=== PATIENT | male | born 1960 | race Caucasian/White ===

== ENCOUNTER 2020-12-07 09:15 | Emergency (ER) | payer SELFPAY ==
--- NOTE | ~2020-12-07 | XR_ITS ---
EXAMINATION: XR chest 2V DATE: 12/07/2020 09:39 INDICATION: Chronic cough. Crackles at right lung base. TECHNIQUE: Frontal and lateral views of the chest were obtained. COMPARISON: Chest single view 03/04/2008 FINDINGS: The chest demonstrates clear lungs without pneumonia, pleural effusion, or pneumothorax. Th e heart size is normal. IMPRESSION: 1. No acute cardiopulmonary disease. Reviewed, dictated and finalized at location A.
[2020-12-07 09:23] VITALS: BP 172/108; PULSE 75; RESP 20; TEMP 36.6; O2SAT 98
--- NOTE | 2020-12-07 09:25 | ED.URI ---
HPI - URI/Sore Throat General Chief Complaint: Upper Respiratory Infection Stated Complaint: Coughing Time Seen by Provider: 12/07/20 09:26 Source: patient and RN notes reviewed History of Present Illness HPI Narrative: Patient is a 60-year-old male who presents the urgent care with complaints of a 2-month cough. Patient states that the cough has gotten much worse over the last 4 days and he is having persistent coughing spells. Patient states that he has been using a lot of cough drops without much improvement. Also reports of some mild chest congestion. Denies of any other upper respiratory complaints. Denies of fever, chills, sore throat, postnasal drainage. Denies of any known contact with Covid, influenza or strep. States he has not been taking his medications for blood pressure for the last 2 weeks because his PCP, dropped him as a patient because he missed a couple appointments . Patient denies of any chest pain or shortness of breath. No other acute complaints. No acute distress noted. Patient aware of the plan of care. Some parts of this dictation were generated by voice recognition software and may contain typographical and/or grammatical inaccuracies. Related Data Allergies Allergy/AdvReac Type Severity Reaction Status Date / Time No Known Allergies Allergy Verified 12/07/20 09:36 Review of Systems Review of Systems: Narrative: CONSTITUTIONAL: Denies fever, chills, or sweats. EYES: Denies visual changes, redness, or discharge. ENT: Denies rhinorrhea, congestion, sore throat, or otalgia. CARDIOVASCULAR: Denies chest pain, palpitations, or edema. RESPIRATORY: Reports of dry persistent cough with coughing spells and chest congestion GASTROINTESTINAL: Denies abdominal pain, nausea, vomiting, or diarrhea. GENITOURINARY: Denies dysuria or hematuria. SKIN: Denies rash or itching. MUSCULOSKELETAL: Denies back pain, joint pain, or myalgia. NEUROLOGIC: Denies headache, numbness, or weakness. All other systems reviewed are negative, except as documented in HPI. [facility] Past Medical History Medical History (Updated 12/07/20 @ 09:56 by MALIKA Loyola) HTN (hypertension) Family History Family History Other Family history of heart disease in male family member before age 55 Social History Social History Smoking status: Never smoker Second hand tobacco smoke exposure: No Alcohol intake: never Comments At the time of my signature, I reviewed and agree with the nursing past medical, surgical, social, and family history. There is no relevant family history pertinent to the patient complaint. Exam Narrative: Exam Narrative: GENERAL: This is a well-nourished, well-developed patient, in no apparent distress. HEAD: normocephalic, atraumatic. EYES: PERRL. Sclera clear/white. Vision is grossly intact. EARS: External ears normal NOSE: External nose normal with no obvious nasal discharge, nares without redness, no rhinorrhea. THROAT: Mucous membranes moist NECK: Neck supple CARDIOVASCULAR: Regular rate and rhythm without murmurs, gallops, or rubs. RESPIRATORY: Persistent coughing fits exacerbated with deep breathing. Crackles to the right lower lobe SKIN: warm, intact with no suspicious lesions or rash, good texture and turgor. NEURO: awake, alert, and oriented to person, place and time. There were no obvious focal neurologic abnormalities. EXTREMITIES: No clubbing, cyanosis, or edema. Course Vital Signs Vital signs: Vital Signs Temperature 98 F 12/07/20 09:23 Pulse Rate 75 12/07/20 09:23 Respiratory Rate 20 12/07/20 09:23 Blood Pressure 172/108 H 12/07/20 09:23 Pulse Oximetry 98 12/07/20 09:23 Temperature 98 F 12/07/20 09:23 Pulse Rate 75 12/07/20 09:23 Respiratory Rate 20 12/07/20 09:23 Blood Pressure 172/108 H 12/07/20 09:23 Pulse Oximetry 98 12/07/20
== END 2020-12-07 10:05 | disposition home or self-care (01) ==
PROVIDERS: Emergency Provider Nurse Practitioner Family
DX: J40 Bronchitis, not specified as acute or chronic (principal); I10 Essential (primary) hypertension
CPT/HCPCS: 71046; 99213; G0463

== ENCOUNTER 2022-10-01 11:08 | Emergency (ER) | payer OTHER, SELFPAY ==
--- NOTE | ~2022-10-01 | XR_ITS ---
XR chest 2V DATE: 10/01/2022 11:33 INDICATION: Chronic cough for 3 weeks TECHNIQUE: 2 views COMPARISON: 12/07/2020 2 view chest FINDINGS: Normal heart size. No hilar or mediastinal enlargement. Mild aortic unfolding. No pulmonary infiltrate or consolidation, pleural effusion or pulmonary vascular congestion or pneumo thorax. IMPRESSION: No active cardiopulmonary disease Reviewed, dictated and finalized at location B.
[2022-10-01 11:14] VITALS: BP 145/100; PULSE 108; RESP 20; TEMP 36.6; O2SAT 97
--- NOTE | 2022-10-01 11:16 | ED.URI ---
HPI - URI/Sore Throat General Chief Complaint: Upper Respiratory Infection Stated Complaint: Cough x 3 weeks Time Seen by Provider: 10/01/22 11:16 Source: patient and RN notes reviewed History of Present Illness HPI Narrative: Patient is a 62-year-old male who presents to urgent care with complaints of a chronic cough more so in the last 3 weeks. Patient states that every morning she wakes up in his ?flap for an his throat gets stuck?. Patient states that his cough is mainly when he lays down at night. Denies any other upper respiratory complaints or fever. Patient has been taking Benadryl and Robitussin for his cough. No other acute complaints. No acute distress noted. Patient aware of the plan of care. Some parts of this dictation were generated by voice recognition software and may contain typographical and/or grammatical inaccuracies. Related Data Allergies Allergy/AdvReac Type Severity Reaction Status Date / Time No Known Allergies Allergy Verified 12/07/20 09:36 Review of Systems Review of Systems: CONSTITUTIONAL: Denies fever, chills, or sweats. EYES: Denies visual changes, redness, or discharge. ENT: Denies rhinorrhea, congestion, sore throat, or otalgia. CARDIOVASCULAR: Denies chest pain, palpitations, or edema. RESPIRATORY: Reports of cough without dyspnea GASTROINTESTINAL: Denies abdominal pain, nausea, vomiting, or diarrhea. GENITOURINARY: Denies dysuria or hematuria. SKIN: Denies rash or itching. MUSCULOSKELETAL: Denies back pain, joint pain, or myalgia. NEUROLOGIC: Denies headache, numbness, or weakness. All other systems reviewed are negative, except as documented in HPI. [facility] Past Medical History Medical History (Updated 10/01/22 @ 11:55 by MALIKA Loyola) HTN (hypertension) Family History Family History Other Family history of heart disease in male family member before age 55 Social History Social History Smoking status: Never smoker Second hand tobacco smoke exposure: No Alcohol intake: never Comments At the time of my signature, I reviewed and agree with the nursing past medical, surgical, social, and family history. There is no relevant family history pertinent to the patient complaint. Exam Narrative: GENERAL: This is a well-nourished, well-developed patient, in no apparent distress. HEAD: normocephalic, atraumatic. EYES: PERRL. Sclera clear/white. Vision is grossly intact. EARS: External ears normal, auditory canals clear and without drainage, TMs normal without perforation. Hearing grossly intact. NOSE: External nose normal with no obvious nasal discharge, nares without redness, no rhinorrhea. THROAT: Mucous membranes moist, posterior pharynx clear. Moderate postnasal drainage NECK: Neck supple, non-tender without lymphadenopathy CARDIOVASCULAR: Regular rate and rhythm RESPIRATORY: Clear to auscultation. Breath sounds equal bilaterally. No wheezes, rales, or rhonchi. SKIN: warm, intact with no suspicious lesions or rash, good texture and turgor. NEURO: awake, alert, and oriented to person, place and time. There were no obvious focal neurologic abnormalities. EXTREMITIES: No clubbing, cyanosis, or edema. Course Course Level of Care: Express Care Visit Vital Signs Vital signs: Vital Signs Temperature 97.9 F 10/01/22 11:14 Pulse Rate 108 H 10/01/22 11:14 Respiratory Rate 20 10/01/22 11:14 Blood Pressure 145/100 H 10/01/22 11:14 Pulse Oximetry 97 10/01/22 11:14 Oxygen Delivery Room Air 10/01/22 11:14 Temperature 97.9 F 10/01/22 11:14 Pulse Rate 108 H 10/01/22 11:14 Respiratory Rate 20 10/01/22 11:14 Blood Pressure 145/100 H 10/01/22 11:14 Pulse Oximetry 97 10/01/22 11:14 Oxygen Delivery Room Air 10/01/22 11:14 Reviewed Patient is informed that they may have pre-hypertension or hypertension based on a blood p
== END 2022-10-01 12:00 | disposition home or self-care (01) ==
PROVIDERS: Emergency Provider Nurse Practitioner Family; PCP Internal Medicine
DX: R05.3 Chronic cough (principal); I10 Essential (primary) hypertension
CPT/HCPCS: 71046; 99213; G0463